=== PATIENT | female | born 1985 | race Caucasian/White ===

== ENCOUNTER 2017-02-25 14:18 | Emergency (ER) | payer OTHER ==
--- NOTE | 2017-02-25 14:23 | UC ---
Abdominal Pain Female HPI - HPI Summary HPI Summary: abd cramping with some bloody vaginal discharge for 1 day---has not missed a period but is trying to get -- - History of Current Complaint Chief Complaint: UCGU Stated Complaint: CRAMPING 1 DAY Time Seen by Provider: 02/25/17 14:23 Hx Obtained From: Patient Hx Last Menstrual Period: 10/22/13 ?: No Onset/Duration: Sudden Onset Severity Initially: Mild Severity Currently: Mild Location: Suprapubic Radiates: Yes Aggravating Factor(s): Nothing Alleviating Factor(s): Nothing Associated Signs and Symptoms: Positive: Vaginal Bleeding - one episode that has essesntial stopped now, Vaginal Discharge Allergies/Adverse Reactions: Allergies Allergy/AdvReac Type Severity Reaction Status Date / Time Azithromycin Allergy Intermediate Hives Verified 02/25/17 14:31 Home Medications: Home Medications Albuterol HFA INHALER* [Ventolin HFA Inhaler*] 2 puff INH Q24H PRN 02/25/17 [ History Confirmed 02/25/17] PMH/Surg Hx/FS Hx/Imm Hx Previously Healthy: Yes - Surgical History Surgical History: Yes Surgery Procedure, Year, and Place: RIGHT KNEE AND LEFT HAND SURGERY.TONSILECTOMY - Family History Known Family History: Positive: None - Social History Occupation: Employed Full-time Lives: With Family Alcohol Use: None Substance Use Type: None Type: Cigarettes Amount Used/How Often: 1/2 ppd Length of Time of Smoking/Using Tobacco: 10 yrs Have You Smoked in the Last Year: Yes Review of Systems Constitutional: Negative Skin: Negative Eyes: Negative ENT: Negative Respiratory: Negative Cardiovascular: Negative Gastrointestinal: Other - crampy pain Genitourinary: Negative Motor: Negative Neurovascular: Negative Musculoskeletal: Negative Neurological: Negative Psychological: Negative All Other Systems Reviewed And Are Negative: Yes Physical Exam Triage Information Reviewed: Yes Appearance: Well-Appearing, No Pain Distress, Well-Nourished Vital Signs Reviewed: Yes Eye Exam: Normal Eyes: Positive: Conjunctiva Clear ENT Exam: Normal ENT: Positive: Normal ENT inspection, Hearing grossly normal. Negative: Nasal congestion, Nasal drainage, Trismus, Muffled/hoarse voice Dental Exam: Normal Neck exam: Normal Neck: Positive: Supple, Nontender Respiratory Exam: Normal Respiratory: Positive: Chest non-tender, No respiratory distress, No accessory muscle use Cardiovascular Exam: Normal Cardiovascular: Positive: RRR, Pulses Normal, Brisk Capillary Refill Abdominal Exam: Normal Abdomen Description: Positive: No Organomegaly, Soft. Negative: CVA Tenderness (R), CVA Tenderness (L) Bowel Sounds: Positive: Present Musculoskeletal Exam: Normal Musculoskeletal: Positive: Strength Intact, ROM Intact, No Edema Neurological Exam: Normal Neurological: Positive: Alert, Muscle Tone Normal Psychological Exam: Normal Skin Exam: Normal Diagnostics - Laboratory Diagnostic Studies Completed/Ordered: upreg negative, urine analysis +1 Protien Abd Pain Female Course/Dx - Course Course Of Treatment: rest follow with pcp lab studies, return or to ED if SX worsen - Differential Dx/Diagnosis Differential Diagnosis: Ectopic , Pelvic Inflammatory Disease, , Urinary Tract Infection Provider Diagnoses: vaginal bleeding Discharge - Discharge Plan Condition: Stable Disposition: HOME Patient Education Materials: Normal Exam (ED) Referrals: [facility] [place] [facility]ICIAN REFERRAL [Outside] - 2 Weeks Additional Instructions: Call tomorrow for you lab results, follow with primary care or [facility] MD for increase or worsening symptoms
[2017-02-25 14:31] VITALS: BP 118/75
--- NOTE | 2017-02-27 07:10 | UC ---
Progress - Progress Note Progress Note: CALL PATIENT. (+) LALO. DIFLUCAN CALLED IN/F/U PCP OR OB IF NOT BETTER.
== END 2017-02-25 15:57 | disposition home or self-care (01) ==
LOC: UCCORT 14:18
DX: N93.9 Abnormal uterine and vaginal bleeding, unspecified (principal); B37.9 Candidiasis, unspecified; Z88.3 Allergy status to other anti-infective agents; F17.210 Nicotine dependence, cigarettes, uncomplicated
CPT/HCPCS: 36415; 81003; 84702; 87480; 87491; 87510; 87591; 87661; 99212; G0463

== ENCOUNTER 2017-12-11 07:01 | Emergency (ER) | payer OTHER ==
[2017-12-11 07:19] VITALS: BP 111/58
--- NOTE | 2017-12-11 07:32 | UC ---
Respiratory Complaint HPI - HPI Summary HPI Summary: 25 weeks gestational age; has had a cough, sore throat, sore eats x 2 days, with cough to the point of emesis x 2. Fever to 100 on the first day, none since. hx of asthma--has not used albuterol as she ran out of it. Use is infrequent, does not use a steroid inhaler. Stopped smoking several months ago. - History of Current Complaint Chief Complaint: UCRespiratory Stated Complaint: COUGH, CHEST CONGESTION Time Seen by Provider: 12/11/17 07:25 Hx Obtained From: Patient Hx Last Menstrual Period: 10/22/13 Onset/Duration: Gradual Onset, Lasting Days - 2 Timing: Intermittent Episodes Severity Initially: Moderate Severity Currently: Moderate Pain Intensity: 8 Alleviating Factors: Upright Position Associated Signs And Symptoms: Positive: Dyspnea, Wheezing, URI, Nasal Congestion - Risk Factors Pulmonary Embolism Risk Factors: Pseudomonas Risk Factors: Negative Tuberculosis Risk Factors: Negative - Allergies/Home Medications Allergies/Adverse Reactions: Allergies Allergy/AdvReac Type Severity Reaction Status Date / Time azithromycin Allergy Hives Verified 12/11/17 07:21 Home Medications: Home Medications Vitamin TAB* 1 tab PO DAILY 12/11/17 [History Confirmed 12/11/17] PMH/Surg Hx/FS Hx/Imm Hx - Additional Past Medical History Additional PMH: hepatitis C--planning treatment post . Respiratory History: Asthma - Surgical History Surgical History: Yes Surgery Procedure, Year, and Place: RIGHT KNEE AND LEFT HAND SURGERY.TONSILECTOMY - Family History Known Family History: Positive: None - No FH of asthma. - Social History Occupation: Employed Full-time - [employer] at [employer] Alcohol Use: None Substance Use Type: None Smoking Status (MU): Former Smoker Type: Cigarettes Amount Used/How Often: 1/2 ppd Length of Time of Smoking/Using Tobacco: 10 yrs Have You Smoked in the Last Year: Yes Review of Systems Constitutional: Fatigue ENT: Sore Throat, Ear Ache Respiratory: Cough Is Patient Immunocompromised?: No All Other Systems Reviewed And Are Negative: Yes Physical Exam Triage Information Reviewed: Yes Appearance: No Pain Distress, Ill-Appearing - congested, looks mildly unwell Vital Signs: Initial Vital Signs Temp 98.7 F 12/11/17 07:12 Pulse 85 12/11/17 07:12 Resp 20 12/11/17 07:12 BP 111/58 12/11/17 07:12 Pulse Ox 98 12/11/17 07:12 Eyes: Positive: Conjunctiva Clear ENT: Positive: Pharynx normal, TM bulging - on right, decreased light reflex., TM red - on right side Neck: Positive: Supple, Nontender, No Lymphadenopathy Respiratory: Positive: Decreased breath sounds - to both bases, Wheezing - throughout Cardiovascular: Positive: RRR, No Murmur Neurological: Positive: Alert, Muscle Tone Normal Psychological Exam: Normal Skin Exam: Normal UC Diagnostic Evaluation - Laboratory O2 Sat by Pulse Oximetry: 98 Re-Evaluation - Re-Evaluation First Eval Re-Evaluation Time: 08:15 Change: Improved - air entry improved, persistent wheeze. Respiratory Course/Dx - Course Course Of Treatment: amoxicillin for right otitis media; steroid inhaler, continue albuterol - Differential Dx/Diagnosis Differential Diagnosis/HQI/PQRI: Asthma, Bronchitis, Sinusitis Provider Diagnoses: otitis media. asthma exacerbation Discharge - Sign-Out/Discharge Documenting (check all that apply): Discharge/Admit/Transfer - Discharge Plan Condition: Stable Disposition: HOME Prescriptions: Albuterol HFA INHALER* [Ventolin HFA Inhaler*] 2 puff INH Q6H PRN #1 mdi PRN Reason: Wheezing Amoxicillin PO (*) [Amoxicillin 875 MG (*)] 875 mg PO BID #14 tab Beclomethasone 80 MCG MDI(NF) [Qvar 80 MCG MDI(NF)] 2 puff INH BID #1 mdi Patient Education Materials: Asthma (ED), Ear Infection (ED) Forms: *Work Release Referrals: Lulu Castellano MD [Primary Care Provider] - Additional Instructions: Begin steroid inhaler to decrease airway inflammation. Rinse mouth after use of this inhaler or you can get a sore tongue and hoarse voice. continue albuterol up to 4 times per day to decrease wheeze. Once you no longer feel the need for albuterol, decrease the Qvar steroid inhaler to 2 puffs once daily for 4 or 5 days. If you need to increase the albuterol, go back to the higher dose of Qvar. If your lungs stay improved, stop the Qvar after 5 days. Folllow up with your PMD to re-check your lungs in about a week. Use amoxicillin for treatment of ear infection. - Billing Disposition and Condition Condition: STABLE Disposition: Home
[2017-12-11] MEDS ORDERED: Albuterol 2.5 MG/3 ML NEB.SOL* (0.083%) INH ONE (07:33)
--- NOTE | 2017-12-11 11:32 | UC ---
- Progress Note Progress Note: Call from pharmacy--Qvar not on her formulary, but Flovent is. Changed rx to Flovent 110mcg twice daily 2 puffs. Re-Evaluation - Re-Evaluation First Eval Re-Evaluation Time: 08:15 Change: Improved - air entry improved, persistent wheeze. Discharge - Sign-Out/Discharge Documenting (check all that apply): Discharge/Admit/Transfer - Discharge Plan Condition: Stable Disposition: HOME Prescriptions: Albuterol HFA INHALER* [Ventolin HFA Inhaler*] 2 puff INH Q6H PRN #1 mdi PRN Reason: Wheezing Amoxicillin PO (*) [Amoxicillin 875 MG (*)] 875 mg PO BID #14 tab Beclomethasone 80 MCG MDI(NF) [Qvar 80 MCG MDI(NF)] 2 puff INH BID #1 mdi Patient Education Materials: Asthma (ED), Ear Infection (ED) Forms: *Work Release Referrals: Lulu Castellano MD [Primary Care Provider] - Additional Instructions: Begin steroid inhaler to decrease airway inflammation. Rinse mouth after use of this inhaler or you can get a sore tongue and hoarse voice. continue albuterol up to 4 times per day to decrease wheeze. Once you no longer feel the need for albuterol, decrease the Qvar steroid inhaler to 2 puffs once daily for 4 or 5 days. If you need to increase the albuterol, go back to the higher dose of Qvar. If your lungs stay improved, stop the Qvar after 5 days. Folllow up with your PMD to re-check your lungs in about a week. Use amoxicillin for treatment of ear infection. - Billing Disposition and Condition Condition: STABLE Disposition: Home
== END 2017-12-11 08:32 | disposition home or self-care (01) ==
LOC: UCCORT 07:01
DX: O26.892 Other specified pregnancy related conditions, second trimester (principal); Z3A.25 25 weeks gestation of pregnancy; H66.91 Otitis media, unspecified, right ear; J45.901 Unspecified asthma with (acute) exacerbation; Z87.891 Personal history of nicotine dependence; Z88.1 Allergy status to other antibiotic agents
CPT/HCPCS: 99212; G0463

== ENCOUNTER 2018-10-14 09:52 | Emergency (ER) | payer OTHER ==
[2018-10-14 10:20] VITALS: BP 123/71
--- NOTE | 2018-10-14 10:54 | UC ---
Complaint Female HPI - HPI Summary HPI Summary: Pt presents with c/o irregular vaginal bleeding that began 1 day ago. Pt reports that she had her LMP 2 weeks ago and that was "very heavy and lasted 2 weeks". Pt reports that she began with vaginal bleeding again yesterday that is "heavy" as well. Pt took two tests yesterday, one positive and one negative. Pt c/o fatigue, eyelid and finger swelling. Pt is 7 months delivery by c section. - History Of Current Complaint Chief Complaint: UCGeneralIllness Stated Complaint: NAUSEA,DIZZINESS Time Seen by Provider: 10/14/18 10:42 Hx Obtained From: Patient Hx Last Menstrual Period: ONSET TODAY ?: No Onset/Duration: Sudden Onset, Lasting Days, Still Present Timing: Constant Severity Initially: Moderate Severity Currently: Moderate Pain Intensity: 7 Character: Dull, Cramping Aggravating Factor(s): Nothing Alleviating Factor(s): Nothing Associated Signs And Symptoms: Positive: Vaginal Bleeding/Discharge, Nausea - Risk Factors Ectopic Risk Factor: Negative Ovarian Torsion Risk Factor: Reproductive Age - Allergies/Home Medications Allergies/Adverse Reactions: Allergies Allergy/AdvReac Type Severity Reaction Status Date / Time azithromycin Allergy Hives Verified 10/14/18 10:08 Home Medications: Home Medications Acetaminophen TAB* [Tylenol TAB*] 650 mg PO Q4H PRN 10/14/18 [History Confirmed 10/14/18] Citalopram TAB* [CeleXA TAB*] 10 mg PO DAILY 10/14/18 [History Confirmed ] Otc Nausea Med PRN 10/14/18 [History] hydrOXYzine HCL TAB* [Atarax 10 MG TAB*] 10 mg PO TID PRN 10/14/18 [History Confirmed 10/14/18] PMH/Surg Hx/FS Hx/Imm Hx Previously Healthy: Yes - Surgical History Surgical History: Yes Surgery Procedure, Year, and Place: RIGHT KNEE AND LEFT HAND SURGERY.TONSILECTOMY. Feb - Family History Known Family History: Positive: None - No FH of asthma. - Social History Occupation: Employed Full-time Lives: With Family Alcohol Use: None Substance Use Type: None Smoking Status (MU): Light Every Day Tobacco Smoker Type: Cigarettes Amount Used/How Often: 2-3 CIGS PER DAY Length of Time of Smoking/Using Tobacco: 10 yrs Have You Smoked in the Last Year: Yes - Immunization History Vaccination Up to Date: Yes Review of Systems All Other Systems Reviewed And Are Negative: Yes Constitutional: Positive: Fatigue Skin: Positive: Negative Eyes: Positive: Negative ENT: Positive: Negative Respiratory: Positive: Negative Cardiovascular: Positive: Negative Gastrointestinal: Positive: Abdominal Pain - epigastric Genitourinary: Positive: Abnormal Bleeding Motor: Positive: Negative Neurovascular: Positive: Negative Musculoskeletal: Positive: Negative Neurological: Positive: Negative Psychological: Positive: Negative Is Patient Immunocompromised?: No Physical Exam Triage Information Reviewed: Yes Appearance: Well-Appearing Vital Signs: Initial Vital Signs Temp 97.7 F 10/14/18 10:11 Pulse 69 10/14/18 10:11 Resp 18 10/14/18 10:11 BP 123/71 10/14/18 10:11 Pulse Ox 98 10/14/18 10:11 Vital Signs Reviewed: Yes Eyes: Positive: Other: - cunjunctiva, pale ENT Exam: Normal Dental Exam: Normal Neck exam: Normal Respiratory Exam: Normal Cardiovascular Exam: Normal Abdomen Description: Positive: Other: - epigastric pain Bowel Sounds: Positive: Present Musculoskeletal Exam: Normal Neurological Exam: Normal Psychological Exam: Normal Skin Exam: Normal Complaint Female Dx - Course Course Of Treatment: I discussed with the pt the need to f/u with PCP and if symptoms worsen to seek care at the closest ER. Pt verbalized understanding and agreed to plan of care. - Differential Dx/Diagnosis Differential Diagnosis/HQI/PQRI: Other - dysfunctional uterine bleeding Provider Diagnosis: Uterine bleeding, dysfunctional, Epigastric abdominal pain Discharge - Sign-Out/Discharge Documenting (check all that apply): Patient Departure All imaging exams completed and their final reports reviewed: No Studies - Discharge Plan Condition: Stable Disposition: HOME Patient Education Materials: Dysfunctional Uterine Bleeding (ED), Fatigue (ED) Referrals: Marce Cortez MD [Primary Care Provider] - As Soon As Possible - Billing Disposition and Condition Condition: STABLE Disposition: Home - Attestation Statements Provider Attestation: Per institutional requirements, I have reviewed the chart, however, I was not consulted specifically or made aware of this patient by the midlevel provider. I did not personally evaluate, interact with , or disposition this patient.
[2018-10-14 14:20] LABS: ABS Basophils 0 10^3/ul (0-0.2); ABS Eosinophils 0.1 10^3/ul (0-0.6); ABS Lymphocytes 1.4 10^3/ul (1.0-4.8); ABS Monocytes 0.4 10^3/ul (0-0.8); ABS Neutrophils 2.5 10^3/ul (1.5-7.7); ABS Nucleated RBC 0 10^3/ul; Eosinophil % 1.2 %; Hematocrit 40 % (33-41); Hemoglobin 13.7 g/dL (12.0-16.0); Lymphocyte % 31.2 %; Mean Corpuscular HGB Conc 34 g/dL (31-36); Mean Corpuscular Hemoglobin 30 pg (27-31); Mean Corpuscular Volume 88 fL (80-97); Mean Platelet Volume 10.9 fL (7.4-10.4); Nucleated Red Blood Cells % 0.3; Platelet Count 171 10^3/uL (150-450); Red Blood Count 4.54 10^6 /uL (3.70-4.87); Red Cell Distribution Width 15 % (10.5-15); White Blood Count 4.5 10^3/uL (3.5-10.8)
[2018-10-14 15:10] LABS: TSH (Thyroid Stimulating Horm) 0.64 mcIU/mL (0.34-5.60)
[2018-10-14 15:12] LABS: Free T4 1.01 ng/dL (0.61-1.12)
--- NOTE | 2018-10-15 07:36 | UC ---
- Progress Note Progress Note: Lab tests reviewed today: CBC and TSH/FT4 within normal limits. She was seen here for increased vaginal bleeding with a test which was 1 negative and other positive at home. test negative here. Plan to give her a courtesy call for follow-up and recommend be seen at ER if symptoms worsening. Continue with recommendations from the last visit here. Course/Dx - Diagnoses Provider Diagnoses: Uterine bleeding, dysfunctional, Epigastric abdominal pain Discharge - Sign-Out/Discharge Documenting (check all that apply): Post-Discharge Follow Up All imaging exams completed and their final reports reviewed: No Studies - Discharge Plan Condition: Stable Disposition: HOME Patient Education Materials: Dysfunctional Uterine Bleeding (ED), Fatigue (ED) Referrals: Marce Cortez MD [Primary Care Provider] - As Soon As Possible - Billing Disposition and Condition Condition: STABLE Disposition: Home
== END 2018-10-14 11:22 | disposition home or self-care (01) ==
LOC: UCCORT 09:52
DX: N93.8 Other specified abnormal uterine and vaginal bleeding (principal); R10.13 Epigastric pain; R53.83 Other fatigue; R11.0 Nausea; M79.89 Other specified soft tissue disorders; Z88.1 Allergy status to other antibiotic agents; F17.210 Nicotine dependence, cigarettes, uncomplicated
CPT/HCPCS: 36415; 81003; 84439; 84443; 84702; 85025; 99211; G0463

== ENCOUNTER 2019-03-26 08:42 | Emergency (ER) | payer OTHER ==
[2019-03-26 09:09] VITALS: BP 104/77
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
== END 2019-03-26 09:49 | disposition home or self-care (01) ==
LOC: UCCORT 08:42
DX: J06.9 Acute upper respiratory infection, unspecified (principal); J45.909 Unspecified asthma, uncomplicated; Z88.1 Allergy status to other antibiotic agents; F17.210 Nicotine dependence, cigarettes, uncomplicated
CPT/HCPCS: 99212; G0463